=== PATIENT | male | born 1975 | race Asian ===

== ENCOUNTER 2019-10-14 05:22 | Emergency (ER) | payer SELFPAY ==
[2019-10-14] MEDS ORDERED: Aspirin 325 MG Tab PO ONE (05:41)
[2019-10-14] MEDS ORDERED: Nitroglycerin 2% Oint 1 GM UD Packet TOP ONE (05:42)
[2019-10-14] MEDS ORDERED: Sodium Chloride 0.9% 1,000 ML IV SCH (05:45)
[2019-10-14] MEDS ORDERED: Aspirin 81 MG Tab.Chew PO ONE (05:47)
[2019-10-14 05:59] LABS: BLOOD UREA NITROGEN,BUN 10 mg/dL (7.0-18.0); CARBON DIOXIDE,CO2 25.9 mmol/L (21.0-32.0); CHLORIDE,CL 105 mmol/L (98-107); GLUCOSE RANDOM 117 mg/dL (74-106); POTASSIUM,K 3.7 mmol/L (3.5-5.1); SODIUM,NA 141 mmol/L (136-148)
--- NOTE | 2019-10-14 06:32 | CR ---
Indication: Chest pain Technique: Single-view chest radiograph AP upright study Comparison: None Findings: Heart size normal. Uncoiled thoracic aorta. Clear lungs. No pleural effusion or pneumothorax. Normal appearing osseous structures. Impression: No evidence of active pulmonary disease. Dictated by Abhijit Edward MD @ Oct 14 2019 6:29AM Signed by Dr. Abhijit Edward @ Oct 14 2019 6:31AM
--- NOTE | 2019-10-14 07:07 | EDM.PDOC ---
ED HPI GENERAL MEDICAL PROBLEM - General Chief Complaint: Chest Pain Stated Complaint: CHEST PAIN Time Seen by Provider: 10/14/19 05:35 Source of Information: Reports: Patient, Family History Limitations: Reports: No Limitations - History of Present Illness INITIAL COMMENTS - FREE TEXT/NARRATIVE: 44-year-old gentleman seen emergency room chief complaint of chest pain shortness of breath. Patient thinks is because of the intermittent Graves's Onset: Today Duration: Hour(s): Location: Reports: Chest Severity: Mild Improves with: Reports: None Associated Symptoms: Reports: No Other Symptoms Treatments DIRECTOR OF REHABILITATION: Reports: EKG chest Pain Score (Numeric/FACES): 3 - Related Data Allergies Allergy/AdvReac Type Severity Reaction Status Date / Time No Known Allergies Allergy Verified 10/14/19 05:35 Home Meds: Home Meds . [No Known Home Meds] 10/14/19 [History] Past Medical History - Past Health History Medical/Surgical History: Denies Medical/Surgical History HEENT History: Reports: None Cardiovascular History: Reports: None Respiratory History: Reports: None Gastrointestinal History: Reports: None Genitourinary History: Reports: None Musculoskeletal History: Reports: None Neurological History: Reports: None Psychiatric History: Reports: None Endocrine/Metabolic History: Reports: None Hematologic History: Reports: None Immunologic History: Reports: None Oncologic (Cancer) History: Reports: None Dermatologic History: Reports: None - Infectious Disease History Infectious Disease History: Reports: None - Past Surgical History Head Surgeries/Procedures: Reports: None Social & Family History - Family History Family Medical History: Noncontributory - Tobacco Use Smoking Status *Q: Never Smoker - Recreational Drug Use Recreational Drug Use: No ED ROS GENERAL - Review of Systems Review Of Systems: See Below Constitutional: Reports: No Symptoms HEENT: Reports: No Symptoms Respiratory: Reports: No Symptoms Cardiovascular: Reports: Chest Pain Endocrine: Reports: No Symptoms GI/Abdominal: Reports: No Symptoms : Reports: No Symptoms Musculoskeletal: Reports: No Symptoms Skin: Reports: No Symptoms Neurological: Reports: No Symptoms Psychiatric: Reports: No Symptoms Hematologic/Lymphatic: Reports: No Symptoms Immunologic: Reports: No Symptoms ED EXAM, GENERAL - Physical Exam Exam: See Below Exam Limited By: No Limitations General Appearance: Alert, WD/WN, No Apparent Distress Eye Exam: Right Eye: Globe Laceration, Bilateral Eye: Normal Fundi, Normal Inspection, PERRL Ears: Normal External Exam, Normal Canal, Hearing Grossly Normal, Normal TMs Ear Exam: Bilateral Ear: Auricle Normal, Canal Normal Nose: Normal Inspection, Normal Mucosa Throat/Mouth: Normal Inspection, Normal Lips, Normal Teeth, Normal Oropharynx Head: Atraumatic, Normocephalic Neck: Normal Inspection, Supple, Non-Tender Respiratory/Chest: No Respiratory Distress, Lungs Clear, Normal Breath Sounds, No Accessory Muscle Use Cardiovascular: Normal Peripheral Pulses, Regular Rate, Rhythm, No JVD, No Murmur GI/Abdominal: Normal Bowel Sounds, Soft, No Distention, No Abnormal Bruit (Male) Exam: Deferred Rectal (Males) Exam: Deferred Back Exam: Normal Inspection Extremities: Normal Inspection Neurological: Alert, Oriented, CN II-XII Intact Psychiatric: Normal Affect, Normal Mood Skin Exam: Warm, Dry, Intact, Normal Color Lymphatic: No Adenopathy EKG INTERPRETATION EKG Date: 10/14/19 Rhythm: NSR Crawford: Normal QRS: Normal ST-T: Normal QT: Normal Course - Vital Signs Text/Narrative:: This 44-year-old gentleman presents to the emergency room chief complaint of chest pain on and off. Patient states he has sharp chest pain initially and thinks is because he has been eating [employer].. Patient is from [facility] has no medical problems has no history of cardiac disease has no family history of cardiac disease. On exam patient is stable head ears eyes nose and throat are normal patient's chest Patient has no murmurs no no gallops or rubs Patient's lungs are clear. After patient received aspirin and nitro pain is completely gone. Patient's initial cardiac enzymes are negative. Patient risk course low. I will repeat a second troponin and have the patient follow-up with cardiology. Last Recorded V/S: Last Vital Signs Temp 96.8 F L 10/14/19 06:21 Pulse 67 10/14/19 06:40 Resp 24 H 10/14/19 06:40 BP 145/94 H 10/14/19 06:40 Pulse Ox 96 10/14/19 06:40 - Orders/Labs/Meds Orders: Active Orders 24 hr Category Date Time Status EKG Documentation Completion [RC] STAT Care 10/14/19 06:23 Active TROPONIN I [CHEM] Stat Lab 10/14/19 07:30 Ordered Sodium Chloride 0.9% [Normal Saline] 1,000 ml Med 10/14/19 05:45 Active IV ASDIRECTED Medication Orders Sodium Chloride (Normal Saline) 1,000 mls @ 125 mls/hr IV ASDIRECTED ALYSA Last Admin: 10/14/19 05:54 Dose: 125 mls/hr Labs: Laboratory Tests 10/14/19 10/14/19 Range/Units 05:30 05:30 WBC 8.29 (4.0-11.0) K/uL RBC 4.71 (4.50-5.90) M/uL Hgb 14.4 (13.0-17.0) g/dL Hct 43.0 (38.0-50.0) % MCV 91.3 (80.0-98.0) fL MCH 30.6 (27.0-32.0) pg MCHC 33.5 (31.0-37.0) g/dL RDW Std Deviation 41.2 (28.0-62.0) fl RDW Coeff of Dedra 12 (11.0-15.0) % Plt Count 200 (150-400) K/uL MPV 9.70 (7.40-12.00) fL Neut % (Auto) 73.7 (48.0-80.0) % Lymph % (Auto) 20.0 (16.0-40.0) % [place] % (Auto) 5.5 (0.0-15.0) % Eos % (Auto) 0.4 (0.0-7.0) % Baso % (Auto) 0.4 (0.0-1.5) % Neut # (Auto) 6.1 H (1.4-5.7) K/uL Lymph # (Auto) 1.7 (0.6-2.4) K/uL [place] # (Auto) 0.5 (0.0-0.8) K/uL Eos # (Auto) 0.0 (0.0-0.7) K/uL Baso # (Auto) 0.0 (0.0-0.1) K/uL Nucleated RBC % 0.0 /100WBC Nucleated RBCs # 0 K/uL Sodium 141 (136-148) mmol/L Potassium 3.7 (3.5-5.1) mmol/L Chloride 105 (98-107) mmol/L Carbon Dioxide 25.9 (21.0-32.0) mmol/L BUN 10 (7.0-18.0) mg/dL Creatinine 0.9 (0.8-1.3) mg/dL Est Cr Clr Drug Dosing 107.02 mL/min Estimated GFR (MDRD) > 60.0 ml/min Glucose 117 H (74-106) mg/dL Calcium 9.0 (8.5-10.1) mg/dL Total Bilirubin 0.8 (0.2-1.0) mg/dL AST 18 (15-37) IU/L ALT <6 L (14-63) IU/L Alkaline Phosphatase 83 (46-116) U/L Troponin I < 0.050 (0.000-0.056) ng/mL Total Protein 7.4 (6.4-8.2) g/dL Albumin 3.9 (3.4-5.0) g/dL Globulin 3.5 (2.6-4.0) g/dL Albumin/Globulin Ratio 1.1 (0.9-1.6) Meds: Medications Generic Name Dose Route Start Last Admin Trade Name Freq PRN Reason Stop Dose Admin Sodium Chloride 1,000 mls @ 125 mls/hr 10/14/19 05:45 10/14/19 05:54 Normal Saline IV 125 mls/hr ASDIRECTED ALYSA Administration Discontinued Medications Generic Name Dose Route Start Last Admin Trade Name Freq PRN Reason Stop Dose Admin Aspirin 324 mg 10/14/19 05:47 10/14/19 05:50 Aspirin PO 10/14/19 05:48 324 mg ONETIME ONE Administration Nitroglycerin 1 gm 10/14/19 05:42 10/14/19 05:51 Nitro-Bid 2% TOP 10/14/19 05:43 1 gm ONETIME ONE Administration Departure - Departure Time of Disposition: 07:36 Disposition: Home, Self-Care 01 Condition: Good Clinical Impression: Atypical chest pain - Discharge Information Instructions: Nonspecific Chest Pain, Adult, [id number], Chest Wall Pain, [id number] Referrals: PCP,None [Primary Care Provider] - Forms: ED Department Discharge Additional Instructions: Patient is to follow-up with primary care physician. Return for any problems. Schedule patient for cardiology for possible stress test Sepsis Event Note - Evaluation Sepsis Screening Result: No Definite Risk - Focused Exam Vital Signs: Vital Signs Temp Pulse Resp BP Pulse Ox 10/14/19 06:40 67 24 H 145/94 H 96 10/14/19 06:21 96.8 F L 65 26 H 135/93 H 96 10/14/19 05:52 65 14 139/94 H 96 10/14/19 05:35 96.8 F L 74 18 153/96 H 97 Date Exam was Performed: 10/14/19 Time Exam was Performed: 07:35 - My Orders Last 24 Hours: My Active Orders 10/14/19 05:45 Sodium Chloride 0.9% [Normal Saline] 1,000 ml IV ASDIRECTED 10/14/19 06:23 EKG Documentation Completion [RC] STAT 10/14/19 07:30 TROPONIN I [CHEM] Stat - Assessment/Plan Last 24 Hours: My Active Orders 10/14/19 05:45 Sodium Chloride 0.9% [Normal Saline] 1,000 ml IV ASDIRECTED 10/14/19 06:23 EKG Documentation Completion [RC] STAT 10/14/19 07:30 TROPONIN I [CHEM] Stat
== END 2019-10-14 08:20 | disposition home or self-care (01) ==
LOC: MW.ED 05:22
DX: R07.89 Other chest pain (principal)
CPT/HCPCS: 36415; 71045; 80053; 84484; 85025; 93005; 96360; 96361; 99285; A9270; J7030